=== PATIENT | female | born 1975 | race Caucasian/White ===

== ENCOUNTER 2017-05-14 08:18 | Emergency (ER) | payer BC, MEDICAID ==
[~2017-05-14] VITALS: Ht 165.1 cm; Wt 123.0 kg
[~2017-05-14 08:18] MED LIST: FLO0.4C PO; GLIM1TAB46 PO; HYDR-569 PO; LANTUS SUBCUT; METF500T7 PO
[2017-05-14] MEDS ORDERED: ketorolac trometh inj. 60 MG/2 ML VIAL IM ONE (08:35)
[2017-05-14] MEDS ORDERED: orphenadrine citrate 60mg/2ml inj. IM ONE (08:40)
[2017-05-14] MEDS ORDERED: CYCL-1 PO (09:07)
[2017-05-14 09:35] VITALS: BP 132/87
== END 2017-05-14 09:37 | disposition home or self-care (01) ==
LOC: ER 08:18
DX: M43.6 Torticollis (principal); Z87.442 Personal history of urinary calculi; Z56.0 Unemployment, unspecified; Z90.49 Acquired absence of other specified parts of digestive tract; Z79.899 Other long term (current) drug therapy; Z79.4 Long term (current) use of insulin
CPT/HCPCS: 96372; 99284; J1885; J2360

== ENCOUNTER 2022-10-12 09:09 | Outpatient (CLI) | payer BC ==
[~2022-10-12 09:09] MED LIST changes: +AMA1T PO; +CYCL-1 PO; -GLIM1TAB46 PO; +HYDR-4383 PO; -HYDR-569 PO; +METF-900 PO; -METF500T7 PO
== END 2022-10-12 23:59 | disposition home or self-care (01) ==
LOC: RAD 09:09
PROVIDERS: ATTEND Physician Assistant
DX: M47.27 Other spondylosis with radiculopathy, lumbosacral region (principal); M25.752 Osteophyte, left hip; M25.751 Osteophyte, right hip; M25.551 Pain in right hip; M25.552 Pain in left hip; M54.41 Lumbago with sciatica, right side; M54.42 Lumbago with sciatica, left side
CPT/HCPCS: 72110; 73522

== ENCOUNTER 2023-07-22 09:58 | Emergency (ER) | payer BC ==
[~2023-07-22] VITALS: Ht 162.6 cm; Wt 86.9 kg
[2023-07-22 10:40] VITALS: BP 111/79; PULSE 74; O2SAT 98
[2023-07-22] MEDS ORDERED: AMOX-117 PO (11:21)
[2023-07-22] MEDS ORDERED: PSEU120T56 PO (11:21)
[2023-07-22] MEDS ORDERED: FLUT16SP2 BOTHNARES (11:21)
[2023-07-22 11:34] VITALS: RESP 18; TEMP 98.9
== END 2023-07-22 11:49 | disposition home or self-care (01) ==
LOC: ER 09:59
DX: U07.1 COVID-19 (principal); H66.91 Otitis media, unspecified, right ear; J32.9 Chronic sinusitis, unspecified; Z88.5 Allergy status to narcotic agent; Z79.899 Other long term (current) drug therapy; Z79.84 Long term (current) use of oral hypoglycemic drugs; Z90.49 Acquired absence of other specified parts of digestive tract
CPT/HCPCS: 99283

== ENCOUNTER 2023-09-02 18:51 | Observation (INO) | payer BC ==
[~2023-09-02] VITALS: Ht 162.6 cm; Wt 88.2 kg
[~2023-09-02 18:51] MED LIST changes: -AMA1T PO; +FLUT16SP2 BOTHNARES; +GLIM1TAB57 PO; +PSEU120T56 PO
[2023-09-02 20:28] LABS: BASOPHILS # (AUTO) 0.1 X10'3 (0-0.2); BASOPHILS % (AUTO) 0.9 % (0-1); EOSINOPHILS # (AUTO) 0.2 X10'3 (0-0.9); EOSINOPHILS % (AUTO) 2.2 % (0-6); HEMATOCRIT 42.5 % (35.0-45.0); HEMOGLOBIN 14.6 g/dl (12.0-16.0); LYMPHOCYTES # (AUTO) 2.5 X10'3 (1.1-4.8); LYMPHOCYTES % (AUTO) 33.9 % (21-51); MEAN CORPUSCULAR HEMOGLOBIN 31.4 PG (27.0-31.0); MEAN CORPUSCULAR HGB CONC 34.4 g/dL (33.0-36.5); MEAN CORPUSCULAR VOLUME 91.5 FL (78-98); MEAN PLATELET VOLUME 6.1 FL (7.4-10.4); MONOCYTES # (AUTO) 0.5 X10'3 (0-0.9); MONOCYTES % (AUTO) 6.7 % (2-12); NEUTROPHILS # (AUTO) 4.1 X10'3 (1.8-7.7); NEUTROPHILS % (AUTO) 56.3 % (42-75); PLATELET COUNT 368 X10'3 (140-440); RED BLOOD COUNT 4.64 X10'6 (4.20-5.60); RED CELL DISTRIBUTION WIDTH 13.2 % (11.5-14.5); WHITE BLOOD COUNT 7.2 X10'3 (4.5-11.0)
[2023-09-02 20:37] LABS: ALANINE AMINOTRANSFERASE 61 U/L (12-78); ALBUMIN 3.6 G/DL (3.4-5.0); ALKALINE PHOSPHATASE 62 IU/L (46-116); ANION GAP 7 (8-16); ASPARTATE AMINO TRANSFERASE 27 U/L (10-37); BILIRUBIN,TOTAL 0.2 MG/DL (0.1-1.0); BLOOD UREA NITROGEN 18 MG/DL (7-18); BUN/CREATININE RATIO 19.4 (10.0-20.0); CALCIUM 8.7 MG/DL (8.5-10.1); CHLORIDE 104 MMOL/L (99-107); CREATININE 0.93 MG/DL (0.40-0.90); GLUCOSE 117 MG/DL (70-104); POTASSIUM 4.6 MMOL/L (3.5-5.1); SODIUM 139 MMOL/L (135-145); TOTAL CARBON DIOXIDE 27.6 MMOL/L (24-32); TOTAL PROTEIN 7.1 G/DL (6.4-8.2); eCRCL 65 ML/MIN; eGFR 65 ML/MIN
[2023-09-02] MEDS: ketorolac trometh. 30mg/ml inj. IM ONE (20:46)
[2023-09-02] MEDS: acetaminophen 325mg tablet PO ONE (20:47)
[2023-09-02 21:42] LABS: LIPASE > 375 U/L (16-77)
[2023-09-02] MEDS: normal saline 1000ML IV soln IVB ONE (22:53)
[2023-09-02] MEDS ORDERED: ketorolac trometh. 30mg/ml inj. IV PRN (23:10)
[2023-09-02] MEDS ORDERED: potassium Cl 20 mEq SR tablet PO PRN ×2 (23:10)
[2023-09-02] MEDS ORDERED: magnesium sulf-water 2g/50mL 50 ML IV PRN (23:10)
[2023-09-02] MEDS ORDERED: potassium Cl 40MEQ/1/2NS 520ml 520 ML IV PRN (23:10)
[2023-09-02] MEDS ORDERED: magnesium hydroxide 30ml (MOM) UD suspension PO PRN (23:10)
[2023-09-02] MEDS ORDERED: magnesium sulf-water 4G/100mL 100 ML IV PRN (23:10)
[2023-09-02] MEDS ORDERED: magnesium Cl slow-release 64mg tablet PO PRN (23:10)
[2023-09-02] MEDS ORDERED: mag hydrox/Alum hydrox/simeth 30ml oral suspension PO PRN (23:10)
[2023-09-02] MEDS ORDERED: ondansetron/PF 4mg/2ml inj IV PRN (23:10)
[2023-09-02] MEDS ORDERED: ketorolac tromethamine 15mg/ml inj. IV PRN (23:30)
[2023-09-03 01:00] VITALS: BP 124/79; PULSE 81; RESP 16; RESP 18; TEMP 98.2; O2SAT 99
[2023-09-03] MEDS ORDERED: GABA300C PO (01:38)
[2023-09-03] MEDS ORDERED: TURM500C4 PO (01:38)
[2023-09-03] MEDS ORDERED: BUPR150T8 PO (01:38)
[2023-09-03] MEDS ORDERED: CELE-193 PO (01:38)
[2023-09-03] MEDS ORDERED: PANT40TA54 PO (01:38)
[2023-09-03] MEDS ORDERED: METH-797 PO (01:38)
[2023-09-03] MEDS ORDERED: SEMA1PEN3 SUBCUT (01:38)
[2023-09-03] MEDS ORDERED: PROP10TA10 PO (01:38)
[2023-09-03] MEDS ORDERED: CLON0.2T PO (01:38)
[2023-09-03] MEDS ORDERED: DOCU-148 PO (01:38)
[2023-09-03] MEDS ORDERED: GLUC1CAP36 PO (01:38)
[2023-09-03] MEDS ORDERED: LISD50CA3 PO (01:38)
[2023-09-03] MEDS ORDERED: LISD20CA PO (01:38)
[2023-09-03] MEDS ORDERED: OMEG1CAP20 PO (01:38)
[2023-09-03] MEDS ORDERED: MAGN250T11 PO (01:38)
[2023-09-03] MEDS ORDERED: OXCA300T4 PO (01:38)
[2023-09-03] MEDS ORDERED: DESV100T3 PO (01:38)
[2023-09-03] MEDS: ringers solution, lacted 1,000 ML IV SCH (02:01)
[2023-09-03] MEDS: cloNIDine 0.1 mg tablet PO ONE (02:45)
[2023-09-03 05:42] LABS: BASOPHILS % (AUTO) 0.3 % (0-1); EOSINOPHILS # (AUTO) 0.2 X10'3 (0-0.9); EOSINOPHILS % (AUTO) 2.5 % (0-6); HEMATOCRIT 38.8 % (35.0-45.0); HEMOGLOBIN 13.2 g/dl (12.0-16.0); LYMPHOCYTES # (AUTO) 3.3 X10'3 (1.1-4.8); MEAN CORPUSCULAR HEMOGLOBIN 31.1 PG (27.0-31.0); MEAN CORPUSCULAR VOLUME 91.6 FL (78-98); MEAN PLATELET VOLUME 6.3 FL (7.4-10.4); MONOCYTES # (AUTO) 0.6 X10'3 (0-0.9); MONOCYTES % (AUTO) 8.2 % (2-12); NEUTROPHILS # (AUTO) 2.8 X10'3 (1.8-7.7); PLATELET COUNT 320 X10'3 (140-440); RED BLOOD COUNT 4.24 X10'6 (4.20-5.60); RED CELL DISTRIBUTION WIDTH 13.1 % (11.5-14.5); WHITE BLOOD COUNT 6.8 X10'3 (4.5-11.0)
[2023-09-03 05:49] LABS: ALBUMIN 2.8 G/DL (3.4-5.0); ANION GAP 9 (8-16); BLOOD UREA NITROGEN 13 MG/DL (7-18); BUN/CREATININE RATIO 24.5 (10.0-20.0); CALCIUM 8.1 MG/DL (8.5-10.1); CHLORIDE 109 MMOL/L (99-107); CREATININE 0.53 MG/DL (0.40-0.90); GLUCOSE 99 MG/DL (70-104); LIPASE 96 U/L (16-77); POTASSIUM 3.6 MMOL/L (3.5-5.1); SODIUM 143 MMOL/L (135-145); TOTAL CARBON DIOXIDE 25.1 MMOL/L (24-32); eCRCL 113 ML/MIN; eGFR > 90 ML/MIN
[2023-09-03 06:00] VITALS: BP 98/60; PULSE 71; RESP 16; TEMP 97.7; O2SAT 96
[2023-09-03] MEDS: K and/or MAG REPLACEMENT MC SCH (07:20)
[2023-09-03] MEDS: docusate sod 100mg capsule PO SCH (07:46)
[2023-09-03] MEDS: enoxaparin 40mg/0.4ml syringe SUBCUT SCH (07:47)
[2023-09-03 08:00] VITALS: RESP 18; O2SAT 96
[2023-09-03] MEDS ORDERED: OMEGA-3/DHA/EPA/FISH OIL 1 EACH CAPSULE.DR PO PRN (09:50)
[2023-09-03] MEDS: propranolol 10mg tablet PO SCH (10:14)
[2023-09-03] MEDS: pantoprazole 40mg Tablet.DR PO SCH (10:14)
[2023-09-03] MEDS: buPROPion SR 150mg tablet PO SCH (10:14)
[2023-09-03 11:00] VITALS: BP 141/86; PULSE 83; RESP 16; TEMP 98.5; O2SAT 97
[2023-09-03] MEDS: acetaminophen 325mg tablet PO PRN (12:16)
[2023-09-03] MEDS: gabapentin 300mg capsule PO SCH (13:55)
[2023-09-03] MEDS ORDERED: oxcarbazepine 150mg tablet PO SCH (20:00)
[2023-09-03] MEDS ORDERED: docusate sod 100mg capsule PO SCH (20:00)
[2023-09-03] MEDS ORDERED: LISDEXAMFETAMINE DIMESYLATE 20 MG PO SCH (21:00)
[2023-09-03] MEDS ORDERED: METHOCARBAMOL PO SCH (21:00)
[2023-09-03] MEDS ORDERED: cloNIDine 0.1 mg tablet PO SCH (21:00)
[2023-09-04] MEDS ORDERED: LISDEXAMFETAMINE DIMESYLATE 50 MG PO SCH (08:00)
[2023-09-04] MEDS ORDERED: [UNRECOGNIZED DRUG - OTHER] PO SCH (08:00)
[2023-09-04] MEDS ORDERED: DESVENLAFAXINE SUCCINATE 100 MG PO SCH (08:00)
[2023-09-04] MEDS ORDERED: magnesium oxide 400mg tablet PO SCH (08:00)
== END 2023-09-03 14:40 | disposition home or self-care (01) ==
LOC: ER 18:51 → ED HOLD 23:11 → ORTHO 4S 09-03 01:00
PROVIDERS: ADMIT Surgery; ATTEND Family Medicine
DX: K85.90 Acute pancreatitis without necrosis or infection, unspecified (principal); E78.5 Hyperlipidemia, unspecified; E11.9 Type 2 diabetes mellitus without complications; Z87.442 Personal history of urinary calculi; Z79.899 Other long term (current) drug therapy
CPT/HCPCS: 36415; 74176; 80048; 80053; 83690; 85025; 87081; 96360; 96361; 96372; 99284; G0378; J1650; J1885; J7030; J7120